=== PATIENT | male | born 1950 | race Caucasian/White ===

== ENCOUNTER 2019-07-09 05:28 | Inpatient (IN) ==
--- NOTE | 2019-06-11 16:39 | PAT Medication Instructions ---
Medication Instructions Date of Service June 11, 2019 Home Medications Cbd Oil 25 mg PO HS 06/06/19 [History Confirmed 06/06/19] Hemp Oil 150 mg PO QAM 06/06/19 [History Confirmed 06/06/19] Lupron Depot (4 month) 1 dose IM Q16W 06/06/19 [History Confirmed 06/06/19] atorvastatin 40 mg PO HS 06/06/19 [History Confirmed 06/06/19] bicalutamide 50 mg PO QPM 06/06/19 [History Confirmed 06/06/19] cyanocobalamin (vitamin B-12) 1,000 mcg PO HS 06/06/19 [History Confirmed 06/06/19] docusate sodium 100 mg PO HS 06/06/19 [History Confirmed 06/06/19] meclizine 12.5 mg PO TID PRN 06/06/19 [History Confirmed 06/06/19] naproxen sodium [Aleve] 440 mg PO Q8H PRN 06/06/19 [History Confirmed 06/06/19] Continue as directed Lupron Depot (4 month) 1 dose IM Q16W 06/06/19 [History Confirmed 06/06/19] ASK your surgeon for instructions naproxen sodium [Aleve] 440 mg PO Q8H PRN 06/06/19 [History Confirmed 06/06/19] ASK your prescriber and surgeon bicalutamide 50 mg PO QPM 06/06/19 [History Confirmed 06/06/19] DO NOT take the morning of surgery Hemp Oil 150 mg PO QAM 06/06/19 [History Confirmed 06/06/19] Take morning of surgery With a small sip of water, OTHERWISE NOTHING TO EAT OR DRINK AFTER MIDNIGHT: meclizine 12.5 mg PO TID PRN (if needed) Take evening before surgery Cbd Oil 25 mg PO HS 06/06/19 [History Confirmed 06/06/19] atorvastatin 40 mg PO HS 06/06/19 [History Confirmed 06/06/19] cyanocobalamin (vitamin B-12) 1,000 mcg PO HS 06/06/19 [History Confirmed 06/06/19] docusate sodium 100 mg PO HS 06/06/19 [History Confirmed 06/06/19] meclizine 12.5 mg PO TID PRN (if needed) Other Notes If you have any questions please call us at [phone] or [phone] or [phone] or [phone]
--- NOTE | 2019-06-12 11:53 | Anesthesiology Consultation ---
Date of Service June 12, 2019 Assessment & Plan (1) Encounter for pre-operative examination: - Awaiting review of preop testing (labs, EKG, CXR). - *Claustrophobic* - Patient anxious RE: SAB (given hx of radiation to the area due to possible metastatic disease)- discussed SAB vs. GA. Chart Review Chart Review: Patient seen in Pre Admission Testing Teaching & Discussion Pre-Anesthesia Teaching/Discussion Notes: Instructed NPO after midnight before surgery,except medications with 15 cc of water. Medication instructions provided according to the PAT guidelines. History Surgery Operation Date: 07/09/19 12:00 Proposed Procedures p Right Total Knee Arthroplasty - Ronal Reagan MD Height/Weight Height: 6 ft Weight: 117.1 kg Allergies Allergy/AdvReac Type Severity Reaction Status Date / Time Rzugnse-Daq-Kzp Reductase Allergy Unknown ONE Verified 06/06/19 16:08 Inhibitor STATIN-RASH Medications Home Medications Medication Instructions Recorded Confirmed Last Taken Cbd Oil 25 mg PO HS 06/06/19 06/06/19 Unknown Hemp Oil 150 mg PO QAM 06/06/19 06/06/19 Unknown Lupron Depot (4 month) 1 dose IM Q16W 06/06/19 06/06/19 Unknown atorvastatin 40 mg PO HS 06/06/19 06/06/19 Unknown bicalutamide 50 mg PO QPM 06/06/19 06/06/19 Unknown cyanocobalamin (vitamin B-12) 1,000 mcg PO HS 06/06/19 06/06/19 Unknown docusate sodium 100 mg PO HS 06/06/19 06/06/19 Unknown meclizine 12.5 mg PO TID PRN 06/06/19 06/06/19 Unknown naproxen sodium [Aleve] 440 mg PO Q8H PRN 06/06/19 06/06/19 Unknown Past Medical History Medical History Arthritis Cancer prostate s/p prostatectomy, XRT (?metastatic disease) History of claustrophobia Hyperlipidemia Obesity Pulmonary embolism S/P left TKA (2012) Sleep apnea CPAP Vertigo Exercise / Class Metabolic Activity III < 4 Walking/Shop/Light housework Past Surgical History Surgical History H/O prostatectomy 2002 History of cholecystectomy History of colonoscopy History of esophagogastroduodenoscopy (EGD) History of surgery on arm RIGHT-S/P INJURY TO REPAIR-DEFORMITY FINGERS BUT ROM OF ARM History of total knee replacement LEFT Past Anesthesia History No Hx of Anesthesia Complications and No Family Hx of Anesthesia Complications History of PONV No Hx of PONV and No Hx of Motion Sickness Social History Smoking Status: Former smoker Do You Dip or Chew Tobacco: No (QUIT 5 YRS AGO) Smoking End Date: QUIT 2016 Hx Alcohol Use: Yes Alcohol type: hard liquor alcohol intake frequency: holidays/special occasions only Hx Substance Use: No Review of Systems Patient denies chest pain, shortness of breath, cough, wheezing, palpitations. Physical Exam Vital Signs VITALS BP 124/70 P 70 TEMP 97.6 SP02 98%RA RESP 18 PHYSICAL Full neck and c-spine range of motion. Full TMJ range of motion. TMD 3 finger breaths Mallampati Score 3 Dentition: full dentures upper/lower Lungs: clear throughout to auscultation Cardiac: regular rate and rhythm, no murmurs noted Spine: normal Carotid arteries: negative bruit Extremities: no edema Testing Stress Test Date: 03/14/18 Type: nuclear Lexiscan nuclear cardiac stress negative for ischemia. LVEF 64%. Gated SPECT images reveals normal myocardial thickening and wall motion. 72% MPHR.
--- NOTE | 2019-06-12 13:02 | XRay Report ---
XR chest Pre-admission PA/Lat CLINICAL HISTORY: 69 years-old Male presenting with preoperative assessment. TECHNIQUE: PA and lateral views of the chest were obtained. COMPARISON: None. FINDINGS: Atherosclerosis of the aortic arch. Cardiac silhouette top normal in size. Lungs and pleural spaces c lear. Osseous structures normal. Cholecystectomy clips noted. IMPRESSION: 1. No acute cardiopulmonary disease. ACT 112: Negative or not required by law. Electronically signed by: Adair Gamboa M.D. 06/12/2019 1:01 PM
[2019-06-12 13:55] LABS: Basophils # (auto) 0.04 K/uL (0-0.2); Basophils % (auto) 0.5 %; Eosinophils # (auto) 0.19 K/uL (0-0.5); Eosinophils % (auto) 2.2 %; Hematocrit (blood only) 42.8 % (42-52); Immature Granulocytes # (auto) 0.05 K/uL (0.00-0.02); Immature Granulocytes % (auto) 0.6 %; Lymphocytes # (auto) 1.59 K/uL (1.2-3.4); Lymphocytes % (auto) 18.6 %; Mean Corpuscular Hemoglobin 33.5 pg (25-34); Mean Corpuscular Volume 95.5 fL (80-100); Mean Platelet Volume 9.8 fL (7.4-10.4); Monocytes # (auto) 0.61 K/uL (0.11-0.59); Monocytes % (auto) 7.2 %; Neutrophils # (auto) 6.05 K/uL (1.4-6.5); Neutrophils % (auto) 70.9 %; Platelet Count 144 K/uL (130-400); RDW Coefficient of Variation 14.9 % (11.5-14.5); RDW Standard Deviation 51.4 fL (36.4-46.3); Red Blood Count 4.48 M/uL (4.7-6.1); White Blood Count 8.53 K/uL (4.8-10.8)
[2019-06-12 13:57] LABS: Estimated Average Glucose 163 mg/dl; Hemoglobin A1C 7.3 % (4.5-5.6)
[2019-06-12 14:02] LABS: Appearance Urine Clear (Clear); Bilirubin Urine Negative (Negative); Blood Urine Negative (Negative); Color Urine Dark Yellow; Glucose Urine UA 2+ (Negative); Ketones Urine Trace (Negative); Leukocyte Esterase Urine Negative (Negative); Nitrite Urine Negative (Negative); Protein Urine Negative (Negative); Specific Gravity Urine 1.031 (1.000-1.030); Urobilinogen Urine Negative (Negative)
[2019-06-12 14:07] LABS: Albumin Level 4.3 gm/dl (3.4-5.0); BUN Creatinine Ratio 16.6 (10-20); Calcium 10.2 mg/dl (8.5-10.1); Est GFR (African American) 69.4; Est GFR (Non-African American) 59.9; Potassium 4.2 mmol/L (3.5-5.1)
[2019-06-12 14:22] LABS: Partial Thromboplastin Ratio 0.8; Partial Thromboplastin Time 22.3 Seconds (21.0-31.0); Prothrombin Time 10.6 Seconds (9.0-12.0)
--- NOTE | 2019-06-12 23:03 | Electrocardiogram Report ---
Test Reason : Blood Pressure : / mmHG Vent. Rate : 072 BPM Atrial Rate : 072 BPM P-R Int : 190 ms QRS Dur : 090 ms QT Int : 386 ms P-R-T Axes : 037 042 041 degrees QTc Int : 422 ms Normal sinus rhythm Nonspecific T wave abnormality No previous ECGs available Confirmed by Efraín Garcia ([id number]) on 06/12/2019 11:03:34 PM Referred By: Ronal Reagan Confirmed By:Efraín Garcia
--- NOTE | 2019-07-08 19:24 | History and Physical Report ---
DATE OF ADMISSION: 07/09/2019 CHIEF COMPLAINT: Chronic right knee pain. HISTORY OF PRESENT ILLNESS: This is a 69-year-old male patient of Dr. Reagan'jovanny complaining of chronic right knee pain, longstanding, now progressively getting worse. The patient has failed conservative treatment including viscosupplementation, intraarticular injections, lidocaine patch, anti-inflammatories, Tylenol, home exercise program and the use of a brace. The patient has pain with weightbearing activities and his pain does interfere with his activities of daily living. The patient has been diagnosed with end-stage osteoarthritis per clinical and radiographic exams in his right knee and wishes to proceed with a right total knee arthroplasty. PAST MEDICAL HISTORY: Hypercholesterolemia, pulmonary embolism, sleep apnea with the use of CPAP, peripheral neuropathy, vertigo, osteoarthritis, spine problems, sciatica, acid reflux, obesity, prostate cancer, cirrhosis. SOCIAL HISTORY: Nonsmoker, nondrinker. SURGICAL HISTORY: Will be provided on admission. FAMILY HISTORY: Noncontributory. REVIEW OF SYSTEMS: Chronic right knee pain, otherwise denies any shortness of breath, chest pain, nausea, vomiting or any other joint complaints. MEDICATIONS: 1. Hemp 150 mg in the morning. 2. Atorvistatin 80 mg 1/2 tablet daily. 3. Bicalutamide 50 mg 1 tablet daily. 4. Docusate sodium 100 mg daily. 5. Vitamin B12 1000 mcg daily. 6. CBD 25 mg daily. 7. Meclizine 12.5 mg 3 times daily as needed. ALLERGIES: STATIN WHICH CAUSED A RASH. PHYSICAL EXAMINATION: GENERAL: Well-developed, well-nourished 69-year-old male in no acute distress. He is alert and oriented x3 and pleasant. HEENT: Normocephalic, atraumatic. Extraocular motions are intact. Pupils are equal and reactive to light. HEART: Regular rate and rhythm, no murmurs. LUNGS: Clear. ABDOMEN: Soft, nontender, bowel sounds present. EXTREMITIES: Right knee reveals a mild effusion with a limited range of motion of 0-115. Neutral alignment. Crepitation with passive range of motion, 5/5 strength. NEUROLOGIC: Neurovascularly he is intact in his right lower extremity. DIAGNOSES: Right knee end-stage osteoarthritis, hypercholesterolemia, history of pulmonary embolism, sleep apnea with the use of CPAP, peripheral neuropathy, vertigo, osteoarthritis, spine problems, sciatica, acid reflux, obesity, prostate cancer, cirrhosis. PLAN: The patient was advised of his diagnosis. Indications, risks, benefits, postop course have all been reviewed. The patient wished to proceed with a right total knee arthroplasty. Necessary consent forms, preoperative testing and clearances will be obtained. PADDY
[2019-07-09] MEDS ORDERED: CeleBREX 200 MG CAP PO SCH (06:00)
[2019-07-09] MEDS ORDERED: FAMOTIDINE 20 MG TAB PO SCH (06:00)
[2019-07-09] MEDS ORDERED: METOCLOPRAMIDE HCL 10 MG TABLET PO SCH (06:00)
[2019-07-09] MEDS ORDERED: GABAPENTIN 300 MG CAP PO SCH (06:00)
[2019-07-09] MEDS ORDERED: LR 500ML BOLUS, THEN 15ML/HR IV SCH (06:00)
[2019-07-09] MEDS ORDERED: dexAMETHasone 4 MG TAB PO SCH (06:00)
[2019-07-09] MEDS ORDERED: CEFAZOLIN 2000MG 2,000 MG/15 ML SYR IV SCH (06:00)
[2019-07-09] MEDS ORDERED: ROPIVACAINE 0.5% HCL/PF 150 MG, BUPIVACAINE 0.5% MPF 30 ML, EPINEPHrine 30MG/30ML (OR U... INFIL SCH (06:00)
[2019-07-09] MEDS ORDERED: ACETAMINOPHEN 500 MG TAB PO SCH (06:00)
[2019-07-09] MEDS ORDERED: ROPIVACAINE 0.5% 5 MG/ML 30 ML VIAL ONE (06:22)
[2019-07-09] MEDS ORDERED: BUPIVACAINE 0.5 % 5 MG/1 ML PF 10ML VIAL ONE (06:22)
[2019-07-09] MEDS ORDERED: ORTHO JOINT ANESTHETIC ONE (06:35)
[2019-07-09] MEDS ORDERED: BACITRACIN INJ 50,000 UNIT VIAL ONE (06:35)
[2019-07-09] MEDS ORDERED: fentaNYL citrate 100 MCG/2 ML VIAL ONE ×2 (06:39→07:50)
[2019-07-09] MEDS ORDERED: MIDAZOLAM HCL 1 MG/ML 2ML VIAL ONE ×2 (06:39)
[2019-07-09] MEDS ORDERED: ONDANSETRON INJ 2 MG/ML 2 ML VIAL IV PRN ×2 (07:00→10:18)
[2019-07-09] MEDS ORDERED: ePHEDrine sulfate 50 MG/ML AMP IV PRN (07:00)
[2019-07-09] MEDS ORDERED: METOCLOPRAMIDE HCL INJ 5 MG/ML 2 ML VIAL IV PRN (07:00)
[2019-07-09] MEDS ORDERED: fentaNYL citrate 100 MCG/2 ML VIAL IV PRN (07:00)
[2019-07-09] MEDS ORDERED: PROMETHAZINE HCL 12.5 MG in SODIUM CHLORIDE 0.9% 50 ML IV PRN (07:00)
[2019-07-09] MEDS ORDERED: ATROPINE SULFATE 0.1 MG/ML 10ML SYR IV PRN (07:00)
--- NOTE | 2019-07-09 07:03 | History & Physical Bridge Note ---
Date of Service July 09, 2019 History & Physical Bridge Note I have examined the patient, reviewed the History & Physical and in the interval since the performance of the History & Physical I have noted the following changes of clinical significance: no changes noted
[2019-07-09] MEDS ORDERED: PROPOFOL IV EMULSION 10 MG/ML 20 ML VIAL IV ONE ×2 (07:51)
[2019-07-09] MEDS ORDERED: LIDOCAINE HCL 2% 2 ML VIAL/AMP(20MG/ML) INFIL ONE (07:51)
[2019-07-09] MEDS ORDERED: ROCURONIUM BROMIDE 10 MG/ML 5 ML VIAL ONE (07:52)
[2019-07-09] MEDS ORDERED: GLYCOPYRROLATE 0.2 MG/ML VIAL ONE (08:54)
[2019-07-09] MEDS ORDERED: NEOSTIGMINE METHYLSULFATE 5 MG/5 ML SYR ONE (08:54)
--- NOTE | 2019-07-09 09:01 | Post Operative Brief Note ---
Immediate Post Op Note v1 Date of Surgery July 09, 2019 Pre & Post Diagnosis Operation Date: 07/09/19 07:00 Pre-Op Diagnosis: Right Knee Degenerative Joint Disease Post-Op Diagnosis: Right Knee Degenerative Joint Disease I identified the patient and participated in the time-out.: Yes Procedure Operation Date: 07/09/19 07:00 Actual Procedures p Right Total Knee Arthroplasty(Right) - Ronal Reagan MD Surgeon Ronal Reagan MD Director [employer] GLYNN [place] Estimated Blood Loss 5 Findings Consistent with Post-Op Diagnosis Valgus knee lateral compartment OA grade 4 trochlear OA grade 4 lateral compartment OA chronic ACL tear medial meniscus tear lateral meniscus tear synovial calcification possible steroid deposition Specimens Bone cuts Drains Hemovac Drain Anesthesia Type MAC Spinal Regional Complications none Disposition Accompanied Patient To Recovery: No Disposition: Recovery Room Overlapping Procedure I was present for: the critical portions of procedure. Back up surgeon: was not required during procedure.
--- NOTE | 2019-07-09 09:42 | XRay Report ---
XR knee RT 1 or 2V routine CLINICAL HISTORY: Postoperative examination COMPARISON: None. DISCUSSION: There are postsurgical changes of a total right knee arthroplasty and patellar resurfacin g. The femoral tibial components appear well seated. Overlying skin abimael and surgical drains are e vident. There is air within the soft tissues consistent with recent surgery. IMPRESSION: Postsurgical changes of a total right knee arthroplasty. ACT 112: Negative or not required by law. Electronically signed by: Akbar Sena M.D. 07/09/2019 9:41 AM
[2019-07-09] MEDS ORDERED: HYDROmorphone INJ 0.5 MG/0.5 ML SYR IV PRN (10:18)
[2019-07-09] MEDS ORDERED: bisacodyL 10 MG SUPP PR PRN (10:18)
[2019-07-09] MEDS ORDERED: NALOXONE HCL 0.4 MG/1 ML VIAL/CARP IV PRN (10:18)
[2019-07-09] MEDS ORDERED: LUPRON DEPOT IM SCH (10:18)
[2019-07-09] MEDS ORDERED: MAGNESIUM HYDROXIDE SUSP 30 ML UDC PO PRN (10:18)
[2019-07-09] MEDS ORDERED: MECLIZINE 12.5 MG TAB PO PRN (10:18)
--- NOTE | 2019-07-09 10:52 | Consultation ---
Date of Consultation July 09, 2019 Assessment & Plan (1) Status post total right knee replacement: 69yo C male status post right total knee arthroplasty performed today by Dr. Reagan. Surgery well tolerated, no complications identified. Patient with history of post-operative PE after a knee replacement in 2012. He completed anticoagulation at that time. -Continue pain, nausea and bowel management per primary team -Activity per primary team. Encourage ambulation as tolerated -Patient to be evaluated by Case Management for possible rehab placement -Rivaroxaban for prophylaxis Present on Admission?: Yes (2) Cancer: Patient with metastatic prostate cancer presently on monthly Lupron and Casodex -Continue Casodex 50mg po daily -Lupron to be administered outpatient as scheduled Present on Admission?: Yes (3) Hyperlipidemia: Chronic. Stable -Continue Atorvastatin at home dose Present on Admission?: Yes (4) Sleep apnea: Chronic -CPAP qHS Thank you for this consult. Hospitalist team will sign off. Please do not hesitate to contact us with additional questions or concerns. History of Present Illness Reason for Consultation: Post-operative medical management Attending Physician: Ronal Reagan MD History of Present Illness Mr. Hemanth Durham is a pleasant 69yo C male with history of metastatic prostate CA, HLP, GERD s/p right TKA [id number] by Dr. Reagan today. Surgery was well tolerated, minimal blood loss. No immediate complications identified. Patient presently with no complaints. Pain is well controlled. No nausea/vomiting. He has not yet eaten or passed gas. No ambulation yet. No complaints at this time. Allergies Allergy/AdvReac Type Severity Reaction Status Date / Time Ofsddvg-Giw-Uuq Reductase Allergy Unknown ONE Verified 07/09/19 05:51 Inhibitor STATIN-RASH Home Medications Home Medications Medication Instructions Recorded Confirmed Type Cbd Oil 25 mg PO HS 06/06/19 07/09/19 History Hemp Oil 150 mg PO QAM 06/06/19 07/09/19 History Lupron Depot (4 month) 1 dose IM Q16W 06/06/19 07/09/19 History atorvastatin 40 mg PO HS 06/06/19 07/09/19 History bicalutamide 50 mg PO QPM 06/06/19 07/09/19 History cyanocobalamin (vitamin B-12) 1,000 mcg PO HS 06/06/19 07/09/19 History docusate sodium 100 mg PO HS 06/06/19 07/09/19 History meclizine 12.5 mg PO TID PRN 06/06/19 07/09/19 History naproxen sodium [Aleve] 440 mg PO Q8H PRN 06/06/19 07/09/19 History Patient History Medical History Arthritis Cancer prostate s/p prostatectomy, XRT (?metastatic disease) History of claustrophobia Hyperlipidemia Obesity Pulmonary embolism S/P left TKA (2012) Sleep apnea CPAP Vertigo Surgical History H/O prostatectomy 2001 History of cholecystectomy History of colonoscopy History of esophagogastroduodenoscopy (EGD) History of surgery on arm RIGHT-S/P INJURY TO REPAIR-DEFORMITY FINGERS BUT ROM OF ARM History of total knee replacement LEFT Family History (Updated 07/09/19 @ 11:24 by Nichelle Mcdonlad DO) Other Cancer Coronary heart disease Social History Preferred Language: Armenian Communication Ability: Effective 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 Beliefs That Will Affect Care: None Current Living Situation: Spouse Other Information That Helps Us Care for You: No Feels Safe at Home: Yes Safety Concerns: Feels Safe At This Time Smoking Status: Former smoker Do You Dip or Chew Tobacco: No (QUIT 5 YRS AGO) ; Smoking End Date: QUIT 2016 ; Second Hand Exposure: Yes (IN THE PAST) ; Hx Alcohol Use: Yes Alcohol type: hard liquor Hx Substance Use: No Review of Systems Review of Systems: General: Patient denies fevers, chills, malaise, weight loss or weight gain Skin: Patient denies bruising, bleeding or rash HEENT: Patient denies headache, visual changes, sore throat, difficulty swallowing, stiff neck Cardio: Patient denies chest pain, palpitations, shortness of breath, lightheadedness Pulmonary: Patient denies cough, wheeze GI: Patient denies abdominal pain, nausea, vomiting, diarrhea, constipation : Patient denies dysuria, frequency, urgency or hematuria Musculoskeletal: Patient denies swelling or pain of the joints, edema Neuro: Patient denies numbness, tingling, weakness or falls Psych: Patient denies depression, anxiety Physical Exam Physical Exam: General: patient resting comfortably, NAD, non-toxic in appearance, AA&O x 4 Skin: warm, dry, no rashes or lesions, RLE bandages in place, C/D/I HEENT: NC/AT, PERRL, EOMI, anicteric sclera, conjunctiva without injection, external ear normal to inspection and nontender, nares patent, moist mucus membranes, dentition intact, no oropharyngeal lesions, neck supple, trachea midline, no LAD, no thyromegaly, no JVD Heart: +S1/S2, regular, no m/r/g Lungs: equal air entry bilaterally, no rales/rhonchi/wheezes Abd: +BS, soft, NT/ND, no masses/organomegaly/ascites Ext: warm, 2+ pulses in UE/LE bilaterally, no clubbing/cyanosis or edema, RLE neurovascularly intact Neuro: nonfocal, patient AA&O x 4, speech intact, no facial droop, moving all extremities on command with equal strength 5/5 Results & Data ([facility]) Vital Signs (Past 12 Hours) Vital Signs Temp Pulse Pulse Resp BP Pulse Ox 07/09/19 10:05 37.1 C 63 14 119/73 96 07/09/19 09:55 36.7 C 62 18 115/63 96 07/09/19 09:45 61 19 118/62 95 07/09/19 09:35 58 L 19 122/62 97 07/09/19 09:25 58 L 20 117/65 95 07/09/19 09:18 36.6 C 61 14 137/67 95 07/09/19 05:55 37.0 C 68 18 134/92 94 Laboratory Results Lab Results 06/12/19 06/12/19 06/12/19 Range/Units 12:15 12:15 12:15 WBC 8.53 (4.8-10.8) K/uL RBC 4.48 L (4.7-6.1) M/uL Hgb 15.0 (14.0-18.0) g/dL Hct 42.8 (42-52) % MCV 95.5 (80-100) fL MCH 33.5 (25-34) pg MCHC 35.0 (32-36) g/dL RDW Std Deviation 51.4 H (36.4-46.3) fL RDW Coeff of Hieu 14.9 H (11.5-14.5) % Plt Count 144 (130-400) K/uL MPV 9.8 (7.4-10.4) fL Immature Gran % (Auto) 0.6 % Neut % (Auto) 70.9 % Lymph % (Auto) 18.6 % [place] % (Auto) 7.2 % Eos % (Auto) 2.2 % Baso % (Auto) 0.5 % Immature Gran # (Auto) 0.05 H (0.00-0.02) K/uL Neut # (Auto) 6.05 (1.4-6.5) K/uL Lymph # (Auto) 1.59 (1.2-3.4) K/uL [place] # (Auto) 0.61 H (0.11-0.59) K/uL Eos # (Auto) 0.19 (0-0.5) K/uL Baso # (Auto) 0.04 (0-0.2) K/uL PT 10.6 (9.0-12.0) Seconds INR 1.0 (0.9-1.1) APTT 22.3 (21.0-31.0) Seconds PTT Ratio 0.8 Sodium 138 (136-145) mmol/L Potassium 4.2 (3.5-5.1) mmol/L Chloride 105 (98-107) mmol/L Carbon Dioxide 28 (21-32) mmol/L Anion Gap 5.0 (3-11) BUN 20 H (7-18) mg/dl Creatinine 1.21 (0.6-1.4) mg/dl Est Cr Clr Drug Dosing 74.0 ml/min Est GFR ( Amer) 69.4 Est GFR (Non-Af Amer) 59.9 BUN/Creatinine Ratio 16.6 (10-20) Glucose 188 H (70-99) mg/dl Estimat Average Glucose mg/dl Hemoglobin A1c (4.5-5.6) % Calcium 10.2 H (8.5-10.1) mg/dl Albumin 4.3 (3.4-5.0) gm/dl Urine Color Urine Appearance (Clear) Urine pH (4.5-7.5) Ur Specific [place] (1.000-1.030) Urine Protein (Negative) Urine Glucose (UA) (Negative) Urine Ketones (Negative) Urine Blood (Negative) Urine Nitrite (Negative) Urine Bilirubin (Negative) Urine Urobilinogen (Negative) Ur Leukocyte Esterase (Negative) Blood Type Antibody Screen 06/12/19 06/12/19 06/12/19 Range/Units 12:15 12:15 Unknown WBC (4.8-10.8) K/uL RBC (4.7-6.1) M/uL Hgb (14.0-18.0) g/dL Hct (42-52) % MCV (80-100) fL MCH (25-34) pg MCHC (32-36) g/dL RDW Std Deviation (36.4-46.3) fL RDW Coeff of Hieu (11.5-14.5) % Plt Count (130-400) K/uL MPV (7.4-10.4) fL Immature Gran % (Auto) % Neut % (Auto) % Lymph % (Auto) % [place] % (Auto) % Eos % (Auto) % Baso % (Auto) % Immature Gran # (Auto) (0.00-0.02) K/uL Neut # (Auto) (1.4-6.5) K/uL Lymph # (Auto) (1.2-3.4) K/uL [place] # (Auto) (0.11-0.59) K/uL Eos # (Auto) (0-0.5) K/uL Baso # (Auto) (0-0.2) K/uL PT (9.0-12.0) Seconds INR (0.9-1.1) APTT (21.0-31.0) Seconds PTT Ratio Sodium (136-145) mmol/L Potassium (3.5-5.1) mmol/L Chloride (98-107) mmol/L Carbon Dioxide (21-32) mmol/L Anion Gap (3-11) BUN (7-18) mg/dl Creatinine (0.6-1.4) mg/dl Est Cr Clr Drug Dosing ml/min Est GFR ( Amer) Est GFR (Non-Af Amer) BUN/Creatinine Ratio (10-20) Glucose (70-99) mg/dl Estimat Average Glucose 163 mg/dl Hemoglobin A1c 7.3 H (4.5-5.6) % Calcium (8.5-10.1) mg/dl Albumin (3.4-5.0) gm/dl Urine Color Dark Yellow Urine Appearance Clear (Clear) Urine pH 5.0 (4.5-7.5) Ur Specific [place] 1.031 H (1.000-1.030) Urine Protein Negative (Negative) Urine Glucose (UA) 2+ H (Negative) Urine Ketones Trace H (Negative) Urine Blood Negative (Negative) Urine Nitrite Negative (Negative) Urine Bilirubin Negative (Negative) Urine Urobilinogen Negative (Negative) Ur Leukocyte Esterase Negative (Negative) Blood Type A Positive Antibody Screen NEGATIVE Diagnostic Findings XR knee RT 1 or 2V routine CLINICAL HISTORY: Postoperative examination COMPARISON: None. DISCUSSION: There are postsurgical changes of a total right knee arthroplasty and patellar resurfacing. The femoral tibial components appear well seated. Overlying skin abimael and surgical drains are evident. There is air within the soft tissues consistent with recent surgery. IMPRESSION: Postsurgical changes of a total right knee arthroplasty. ACT 112: Negative or not required by law. Electronically signed by: Akbar Sena M.D. 07/09/2019 9:41 AM Dictated: 07/09/[id number] Transcribed: 07/09/19939 ECG Additional Comments: EKG from 12 June 2019 - NSR at 72 bpm, normal axis, OX=482, QRS=90, ILr=794, no acute ischemic changes PG Care Time/CCT Total # of Minutes Spent Total Time Spent with Patient: Total time spent is greater than 50% in coordination of care (as documented) at patient's floor/unit and/or counseling patient: Coding Level of Care Code 41210 Initial Inpt Care Lvl 3 Diagnoses Status post total right knee replacement Z96.651 Cancer C80.1 Hyperlipidemia E78.5 Hyperlipidemia type: unspecified Sleep apnea G47.30 Sleep apnea type: unspecified type (1) Sleep apnea Sleep apnea type: unspecified type Qualified Code(s): G47.30 - Sleep apnea, unspecified (2) Hyperlipidemia Hyperlipidemia type: unspecified Qualified Code(s): E78.5 - Hyperlipidemia, unspecified
[2019-07-09] MEDS: SODIUM CHLORIDE 0.9% 1000ML 1,000 ML IV SCH ×2 (10:53→20:49)
--- NOTE | 2019-07-09 10:57 | Anesthesiology Progress Note ---
Date of Service July 09, 2019 Anesthesia Post Procedure Vital Signs Vital Signs: Temp Pulse Pulse Resp BP Pulse Ox 07/09/19 10:35 36.5 C 66 15 104/68 95 07/09/19 10:05 37.1 C 63 14 119/73 96 07/09/19 09:55 36.7 C 62 18 115/63 96 07/09/19 09:45 61 19 118/62 95 07/09/19 09:35 58 L 19 122/62 97 07/09/19 09:25 58 L 20 117/65 95 07/09/19 09:18 36.6 C 61 14 137/67 95 07/09/19 05:55 37.0 C 68 18 134/92 94 Pain Intensity Right Knee: Pain Intensity: 3 Transfer of Care Handoff Completed per policy Notes Mental Status: alert / awake / arousable and participated in evaluation Patient Amnestic to Procedure: Yes Nausea / Vomiting: adequately controlled Pain: adequately controlled Airway Patency, RR, SpO2: stable & adequate BP & HR: stable & adequate Hydration State: stable & adequate Anesthetic Complications: no major complications apparent
--- NOTE | 2019-07-09 12:20 | Operative Report ---
Post Operative Report Pre & Post Diagnosis Operation Date: 07/09/19 07:00 Pre-Op Diagnosis: Right Knee Degenerative Joint Disease Post-Op Diagnosis: Right Knee Degenerative Joint Disease I identified the patient and participated in the time-out.: Yes Procedure Operation Date: 07/09/19 07:00 Actual Procedures p Right Total Knee Arthroplasty(Right) - Ronal Reagan MD Surgeon Ronal Reagan MD Career Development Director GLYNN Salamanca Estimated Blood Loss 5 Findings Consistent with Post-Op Diagnosis Specimens Bone cuts Drains 2 Hemovac Anesthesia Type General Regional Complications none Disposition Disposition: Recovery Room Indications 69-year-old male with chronic progressive osteoarthritis in his right knee. Patient is a valgus knee [id number] lateral compartment with some moderate patellofemoral OA. Patient is failed conservative management. Patient has successful left knee replacement the past. Description of Procedure The patient was taken to the operating room and anesthetized under general anesthesia he also had regional block anesthesia right lower extremity.. Patient was placed supine on the the operating table. A pneumatic tourniquet was placed about the right upper thigh. The knee exam demonstrated valgus knee good range of motion positive Janee exam. The involved leg was elevated exsanguinated with Esmarch bandage and the pneumatic tourniquet was raised to 325 millimeters mercury. A longitudinal incision was made across the anterior knee. Skin flaps were elevated. An incision was made into the medial retinaculum and extended up into the mid third of the quadriceps tendon and extended down to the tibial tubercle. Intra-articular findings demonstrated chronic ACL tear grade 4 trochlear DJD grade 4 lateral compartment DJD [id number] chronic medial meniscus tear chronic lateral meniscus tear calcified synovium possibly related to steroid deposition chronic synovitis. The knee was exposed by excising the posterior cruciate ligament and menisci. The infrapatellar fat pad was resected. The fat pad over the anterior femur at the upper aspect of the articular surface was resected for placement of the component in that area. A subperiosteal peel lateral release was performed around the patella The [employer] journey 2.0 posterior stabilized total knee arthroplasty system was utilized for the procedure. The custom femoral cutting guide was pinned in position. The distal femoral cut was made. The size 8, 5 in 1 cutting block was placed. The anterior posterior and chamfer cuts were made. The knee was extended and a free hand cut technique was performed to the patella. The patella with was measured and the width was reproduced using a 41 patella component. 3 drill holes are made for the patella component pegs. The tibia was then subluxed. The custom tibial cutting block was pinned in position and the proximal tibial cut was made with the oscillating saw. The size 7 tibial trial was externally rotated in line with the tibial tubercle and pinned in position. The punch for the stem was used. The femoral trial was inserted and centered the notch cutting devices were used and the collet was placed. Tibial trials were used for the insert. The size 11 trial gave balanced ligaments through full range of motion. Patella tracking was assessed with range of motion. The patella tracked with some slight liftoff so I did a lateral release leaving the synovium intact and the patella tracked centrally. The trials were removed. The Orthomix anesthetic cocktail was injected per protocol. The cut bone surfaces and soft tissue were copiously irrigated with antibiotic solution with bacitracin. The final components were cemented with Simplex cement. The final components were [employer] journey 2.0 right posterior stabilized size 8 femoral component, 7 tibial component, 11 mm posterior stabilized polyethylene insert for the tibia, 41 symmetrical patella.. While the cement cured the Betadine soak was used per protocol. When the cement cured the knee was copiously irrigated with pulsatile lavage antibiotic solution with bacitracin. 2 drains were brought out laterally connected to Hemovac. The quadriceps tendon and medial retinaculum were closed with interrupted [id number] #1 Vicryl sutures. The knee was taken through full range of motion and repair was secure. The subcutaneous tissues were closed with 2-0 Vicryl sutures. The skin was closed with abimael. A sterile dressing was applied. The tourniquet was let down and the patient had good capillary refill to the extremity. The patient tolerated the procedure well. My physician acute care assistant GLYNN Salamanca assisted in the procedure including prepping draping leg positioning soft tissue retraction instrument management and assisted in the closure ,dressings application and will participate in postoperative care the patient. I attest to the content of the Intraoperative Record and any orders documented therein. Any exceptions are noted below.
[2019-07-09] MEDS: OXYCODONE HCL IR 5 MG TAB (IMMEDIATE RELEASE) PO PRN ×2 (12:27→15:36)
[2019-07-09] MEDS ORDERED: ACETAMINOPHEN 1000 MG/100 ML IV IV ONE (14:02)
[2019-07-09] MEDS ORDERED: GLUCAGON 1 MG in SYRINGE 0 ML IV STA (14:03)
[2019-07-09] MEDS: ACETAMINOPHEN 500 MG TAB PO SCH ×2 (14:10→21:00)
[2019-07-09] MEDS: CEFAZOLIN 2000MG 2,000 MG/15 ML SYR IV SCH ×2 (14:25→23:10)
[2019-07-09] MEDS ORDERED: GLUCAGON 1 MG in SYRINGE 0 ML IV ONE (14:30)
--- NOTE | 2019-07-09 15:11 | Gastrointestinal Consultation ---
Date of Consultation July 09, 2019 Assessment & Plan (1) Dysphagia: Pt is a 69 y/o male with PMHx metastatic prostate CA; GI was consulted this afternoon for concern of food bolus after pt felt his food (steak tips and noodles) along with a pain pill get "stuck" in the throat area after swallowing. Pt did have a small amt of emesis followed by the sensation that the food "went down" and was no longer stuck in his throat. He was able to swallow some pudding afterward and did not have further emesis. Currently he is without complaints; hemodynamically stable; in no distress or discomfort. It seems that he may have had a food bolus that relieved itself. Contributing factors ar e likely his lack of bottom teeth, recent sedation this AM, laying in bed, and given his frequent belching and intermittent dysphagia to liquids, may have underlying UGI issues such as esophageal stenosis/dysmotility, PUD/gastritis/esophagitis, etc. Initially we ordered glucagon, however as his symptoms were resolved, we cancelled this order. He notes that he has ongoing issues swallowing very cold liquids and also has frequent belching. - Will plan for EGD tomorrow to evaluate for underlying esophageal stenosis/ring/Web/diverticulum, etc, vs PUD/gastritis/esophagitis - Would be reasonable to start low-dose PPI daily for his symptoms of belching and dysphagia (e.g. omeprazole 20 mg daily) - Recommend pt be on a clear liquid diet today. - NPO after midnight - Further recommendations to follow EGD tomorrow Supervising Physician Co-Signing Physician Notes I saw and evaluated the patient on 07-09-19. We were consulted for a food impaction. This occurred shortly after a surgical procedure with general anesthesia. At the time of our arrival the patient noted that the bolus had passed without any difficulties. He was tolerating a liquid diet and had been given pudding by the nursing staff. The patient notes that he has had some outpatient intermittent solid food dysphagia over the past few years. Prior endoscopy in 2018 was notable for no significant structural abnormalities. Physical examination No obvious distress No crepitus noted of the chest No abdominal tenderness Impression: Patient with intermittent solid food dysphasia status post food bolus impaction which resolved spontaneously. We are certainly happy to provide endoscopic evaluation during this patient's admission. Recommendations Liquid diet today Upper endoscopy planned for tomorrow Please call with any questions or concerns History of Present Illness Reason for Consultation: food bolus Attending Physician: Ronal Reagan MD History of Present Illness Pt is a 69 y/o male with PMhx metastatic prostate CA, HLD who underwent total right knee replacement this AM by Dr. Reagan. After coming up to the floor, the pt was eating steak tips and noodles for lunch when he was attempting to swallow a pain pill and bites of food at the same time. He felt pressure and discomfort in his throat as the food "didn't go down" and was "stuck" around his anterior throat area. He noted he vomited some of it up and the rest "went down." He had relief of the pressure and discomfort. He was able to swallow some pudding thereafter. Currently feels well without complaints. He notes he has no bottom teeth but does have upper dentures. Denies abd pain, nausea, vomiting, hematemesis; has had no BM since admission. Pt notes a few times a year he will have fleeting episodes of discomfort in his anterior chest after swallowing large gulps of very cold Pepsi. He also notes frequent belching. Denies significant heartburn, regurgitation, solid food dysphagia. EGD 12/2017: Normal esophagus. Z-line regular, 39 cm from the incisors. Diffuse gastritis, biopsied = mild inflammation, neg H. pylori. Normal examined duodenum. Biopsied = neg Celiac. EUS 12/2017: Gallbladder sludge Colonoscopy10/2016: Sigmoid diverticulosis; repeat 10 years Allergies Allergy/AdvReac Type Severity Reaction Status Date / Time Bgylaji-Yuw-Wmy Reductase Allergy Unknown ONE Verified 07/09/19 05:51 Inhibitor STATIN-RASH Home Medications Home Medications Medication Instructions Recorded Confirmed Type Cbd Oil 25 mg PO HS 06/06/19 07/09/19 History Hemp Oil 150 mg PO QAM 06/06/19 07/09/19 History Lupron Depot (4 month) 1 dose IM Q16W 06/06/19 07/09/19 History atorvastatin 40 mg PO HS 06/06/19 07/09/19 History bicalutamide 50 mg PO QPM 06/06/19 07/09/19 History cyanocobalamin (vitamin B-12) 1,000 mcg PO HS 06/06/19 07/09/19 History docusate sodium 100 mg PO HS 06/06/19 07/09/19 History meclizine 12.5 mg PO TID PRN 06/06/19 07/09/19 History naproxen sodium [Aleve] 440 mg PO Q8H PRN 06/06/19 07/09/19 History Patient History Medical History Arthritis Cancer prostate s/p prostatectomy, XRT (?metastatic disease) History of claustrophobia Hyperlipidemia Obesity Pulmonary embolism S/P left TKA (2012) Sleep apnea CPAP Vertigo Surgical History H/O prostatectomy 2001 History of cholecystectomy History of colonoscopy History of esophagogastroduodenoscopy (EGD) History of surgery on arm RIGHT-S/P INJURY TO REPAIR-DEFORMITY FINGERS BUT ROM OF ARM History of total knee replacement LEFT Family History (Updated 07/09/19 @ 11:24 by Nichelle Mcdonald DO) Other Cancer Coronary heart disease Social History Preferred Language: Welsh Communication Ability: Effective Monotype Setter Required: No Beliefs That Will Affect Care: None Current Living Situation: Spouse Other Information That Helps Us Care for You: No Feels Safe at Home: Yes Safety Concerns: Feels Safe At This Time Smoking Status: Former smoker Do You Dip or Chew Tobacco: No (QUIT 5 YRS AGO) ; Smoking End Date: QUIT 2016 ; Second Hand Exposure: Yes (IN THE PAST) ; Hx Alcohol Use: Yes Alcohol type: hard liquor Hx Substance Use: No Review of Systems Constitutional: as per Subjective / HPI; no fever and no chills Respiratory: no cough and no dyspnea Cardiovascular: no chest pain and no dyspnea Gastrointestinal: as per Subjective / HPI Integumentary: no rash Physical Exam Constitutional: WD/WN, vitals as above no acute distress Eyes: PERRL, conjunctivae normal, anicteric sclerae Respiratory: normal respiratory effort, lungs clear to auscultation Cardiovascular: RRR, no murmur, no edema Gastrointestinal (Abdomen): Inspection/Auscultation: abdomen normal to inspection and normal bowel sounds; abdomen not distended Percussion/Palpation: abdomen soft and normal to percussion; abdomen nontender and no guarding Skin: no rashes, warm and dry Psychiatric: A+Ox3, euthymic affect somewhat groggy as he just had anesthesia this AM Results & Data ([facility]) Vital Signs (Past 12 Hours) Vital Signs Temp Pulse Pulse Resp BP Pulse Ox 07/09/19 14:58 36.4 C L 67 17 121/74 96 07/09/19 13:13 36.5 C 85 19 130/80 98 07/09/19 12:05 36.4 C L 63 15 109/72 96 07/09/19 11:06 36.5 C 69 14 109/72 96 07/09/19 10:35 36.5 C 66 15 104/68 95 07/09/19 10:05 37.1 C 63 14 119/73 96 07/09/19 09:55 36.7 C 62 18 115/63 96 07/09/19 09:45 61 19 118/62 95 07/09/19 09:35 58 L 19 122/62 97 07/09/19 09:25 58 L 20 117/65 95 07/09/19 09:18 36.6 C 61 14 137/67 95 07/09/19 05:55 37.0 C 68 18 134/92 94
[2019-07-09] MEDS: BICALUTAMIDE 50 MG TAB PO SCH (20:58)
[2019-07-09] MEDS: SENNA 8.6 MG TAB PO SCH (20:58)
[2019-07-09] MEDS: DOCUSATE SODIUM 100 MG CAP PO SCH (20:59)
[2019-07-09] MEDS: CYANOCOBALAMIN 500 MCG TABLET (VITAMIN B-12) PO SCH (20:59)
[2019-07-09] MEDS: CeleBREX 200 MG CAP PO SCH (20:59)
[2019-07-09] MEDS: ATORVASTATIN 40 MG TAB PO SCH (21:00)
[2019-07-09] MEDS ORDERED: DOCUSATE SODIUM 100 MG CAP PO SCH (21:00)
[2019-07-09] MEDS ORDERED: CBD OIL PO SCH (21:00)
[2019-07-10 05:09] LABS: Hematocrit (blood only) 32.8 % (42-52); Hemoglobin 11.7 g/dL (14.0-18.0); Mean Corpuscular Hemoglobin 33.4 pg (25-34); Mean Corpuscular Hgb Conc 35.7 g/dL (32-36); Mean Corpuscular Volume 93.7 fL (80-100); Mean Platelet Volume 9.1 fL (7.4-10.4); Platelet Count 167 K/uL (130-400); RDW Coefficient of Variation 14.9 % (11.5-14.5); RDW Standard Deviation 49.8 fL (36.4-46.3); White Blood Count 14.07 K/uL (4.8-10.8)
[2019-07-10 05:36] LABS: Calcium 8.4 mg/dl (8.5-10.1); Creatinine Clr Calc Pharmacy 70.7 ml/min; Est GFR (African American) 65.4; Est GFR (Non-African American) 56.5; Potassium 4.1 mmol/L (3.5-5.1)
[2019-07-10] MEDS: ACETAMINOPHEN 500 MG TAB PO SCH ×3 (05:43→21:37)
[2019-07-10] MEDS: SODIUM CHLORIDE 0.9% 1000ML 1,000 ML IV SCH ×2 (06:24→17:15)
--- NOTE | 2019-07-10 08:17 | Anesthesiology Progress Note ---
Date of Service July 10, 2019 Anesthesia Post Procedure Vital Signs Vital Signs: Temp Pulse Pulse Pulse Resp BP Pulse Ox 07/10/19 07:12 36.5 C 65 16 126/79 97 07/10/19 02:55 36.8 C 73 16 109/73 98 07/09/19 23:04 36.8 C 71 17 110/72 95 07/09/19 19:58 36.8 C 68 16 99/64 L 94 07/09/19 14:58 36.4 C L 67 17 121/74 96 07/09/19 13:13 36.5 C 85 19 130/80 98 07/09/19 12:05 36.4 C L 63 15 109/72 96 07/09/19 11:06 36.5 C 69 14 109/72 96 07/09/19 10:35 36.5 C 66 15 104/68 95 07/09/19 10:05 37.1 C 63 14 119/73 96 07/09/19 09:55 36.7 C 62 18 115/63 96 07/09/19 09:45 61 19 118/62 95 07/09/19 09:35 58 L 19 122/62 97 07/09/19 09:25 58 L 20 117/65 95 07/09/19 09:18 36.6 C 61 14 137/67 95 Pain Intensity Right Knee: Pain Intensity: 1 Notes Mental Status: alert / awake / arousable and participated in evaluation Nausea / Vomiting: adequately controlled Pain: adequately controlled Airway Patency, RR, SpO2: stable & adequate BP & HR: stable & adequate Hydration State: stable & adequate
[2019-07-10] MEDS ORDERED: CARBOHYDRATES FOR HYPOGLYCEMIA PO PRN (08:20)
[2019-07-10] MEDS ORDERED: GLUCAGON FOR INJ 1 MG VIAL SQ PRN (08:20)
[2019-07-10] MEDS ORDERED: GLUCOSE 40% GEL 15 GM TUBE PO PRN (08:20)
[2019-07-10] MEDS ORDERED: GLUCOSE 10 TABS/TUBE PO PRN (08:20)
[2019-07-10] MEDS ORDERED: DEXTROSE 50% 50 ML SYRINGE IV PRN (08:20)
--- NOTE | 2019-07-10 08:27 | Orthopedic Progress Note ---
Date of Service July 10, 2019 Assessment & Plan (1) Status post total right knee replacement: POD #1 PT/ OT DVT proph- Xarelto, on hold for now due to GI procedure. D/C planning- SNF As per medicine (2) Dysphagia: Patient is NPO per GI for EGD today due to hx of dysphagia. Admission and Anticipated Discharge Date Admission Date: July 09, 2019 Subjective POD #1, Patient doing well this AM. Denies SOB, CP, N/V. Had an episode last evening during dinner where he choked, he was trying to take a pill at the same time with food in his mouth and was felt to have a food bolus. He did get the food and pill swallowed with some emesis. Patient states this has been going on for years and he just manages it, has never really reported it to his doctors. Physical Exam Physical Exam: Laying comfortable in bed. Right knee dressings/ drain c/d/i. Toes/ ankle mobile. A&Ox3. Results & Data ([facility]) Vital Signs (Past 12 Hours) Vital Signs Temp Pulse Resp BP Pulse Ox 07/10/19 07:12 36.5 C 65 16 126/79 97 07/10/19 02:55 36.8 C 73 16 109/73 98 07/09/19 23:04 36.8 C 71 17 110/72 95
[2019-07-10] MEDS ORDERED: FAMOTIDINE 20 MG TAB PO SCH (09:00)
[2019-07-10] MEDS ORDERED: RIVAROXABAN 10 MG TABLET PO SCH ×2 (09:00→21:00)
[2019-07-10] MEDS ORDERED: HEMP OIL PO SCH (09:00)
[2019-07-10] MEDS: DOCUSATE SODIUM 100 MG CAP PO SCH ×2 (09:02→21:38)
[2019-07-10] MEDS: CeleBREX 200 MG CAP PO SCH ×3 (09:02→21:38)
[2019-07-10] MEDS: MULTIVITAMIN TAB PO SCH (09:02)
[2019-07-10] MEDS: INSULIN GLARGINE SOLOSTAR 100 UNITS/ML 3 ML PEN SC SCH ×2 (09:20→21:40)
--- NOTE | 2019-07-10 09:23 | Gastroenterology Progress Note ---
Date of Service July 10, 2019 Assessment & Plan (1) Dysphagia: Pt is a 69 y/o male with intermittent episodes of liquid/solid dysphagia, reported food bolus which passed yesterday without intervention, to undergo endosocopic evaluation today - NPO for EGD - Omeprazole 20 mg daily Admission and Anticipated Discharge Date Admission Date: July 09, 2019 Supervising Physician Co-Signing Physician Notes I saw and evaluated the patient. We are planning for upper endoscopy today due to intermittent solid food dysphagia. We have discussed the risks of the procedure to include bleeding, infection, perforation and need for follow-up exams. Subjective Pt was seen and evaluated, chart reviewed No acute concerns overnight No fever, chills, CP, SOB NPO for EGD Review of Systems Constitutional: as per Subjective / HPI; no fever and no chills Gastrointestinal: as per Subjective / HPI Physical Exam Constitutional: WD/WN, vitals as above Neck: trachea midline Respiratory: normal respiratory effort Cardiovascular: Rate/Rhythm: regular rate and regular rhythm Gastrointestinal (Abdomen): normal bowel sounds, soft, nontender, no hepatosplenomegaly Results & Data ([facility]) Vital Signs (Past 12 Hours) Vital Signs Temp Pulse Resp BP Pulse Ox 07/10/19 07:12 36.5 C 65 16 126/79 97 07/10/19 02:55 36.8 C 73 16 109/73 98 07/09/19 23:04 36.8 C 71 17 110/72 95
[2019-07-10] MEDS ORDERED: Nursing to Pharmacy Communication ONE ×2 (09:41→15:19)
[2019-07-10] MEDS ORDERED: LIDOCAINE HCL 2% 2 ML VIAL/AMP(20MG/ML) INFIL ONE (10:47)
[2019-07-10] MEDS ORDERED: PROPOFOL IV EMULSION 10 MG/ML 20 ML VIAL IV ONE (10:47)
[2019-07-10] MEDS ORDERED: fentaNYL citrate 100 MCG/2 ML VIAL ONE (10:47)
[2019-07-10] MEDS ORDERED: ePHEDrine sulfate 50 MG/ML AMP IV PRN (10:50)
[2019-07-10] MEDS ORDERED: ATROPINE SULFATE 0.1 MG/ML 10ML SYR IV PRN (10:50)
--- NOTE | 2019-07-10 10:50 | Anesthesiology Consultation ---
Date of Service July 10, 2019 Assessment & Plan Chart Review Chart Review: Acceptable Risk for Surgery and Patient NOT seen in Pre Admission Testing Consults Requested none ASA ASA4 Proposed Anesthesia Anesthesia Type: MAC Risk / Benefits Reviewed With: PT / POA / Parent / Guardian, Accepts Plan and Informed Consent Obtained History Surgery Operation Date: 07/09/19 07:00 Proposed Procedures p Right Total Knee Arthroplasty - Ronal Reagan MD Operation Date: 07/10/19 16:30 Proposed Procedures p Esophagogastroduodenoscopy Dr John Lopez Height/Weight Height: 6 ft Weight: 117.8 kg Allergies Allergy/AdvReac Type Severity Reaction Status Date / Time Geafojq-Nxr-Vrp Reductase Allergy Unknown ONE Verified 07/09/19 05:51 Inhibitor STATIN-RASH Medications Home Medications Medication Instructions Recorded Confirmed Last Taken Cbd Oil 25 mg PO HS 06/06/19 07/09/19 07/07/19 21:00 Hemp Oil 150 mg PO QAM 06/06/19 07/09/19 07/07/19 09:00 Lupron Depot (4 month) 1 dose IM Q16W 06/06/19 07/09/19 Unknown atorvastatin 40 mg PO HS 06/06/19 07/09/19 07/07/19 21:00 bicalutamide 50 mg PO QPM 06/06/19 07/09/19 07/07/19 21:00 cyanocobalamin (vitamin B-12) 1,000 mcg PO HS 06/06/19 07/09/19 07/07/19 21:00 docusate sodium 100 mg PO HS 06/06/19 07/09/19 07/07/19 21:00 meclizine 12.5 mg PO TID PRN 06/06/19 07/09/19 07/07/19 21:00 naproxen sodium [Aleve] 440 mg PO Q8H PRN 06/06/19 07/09/19 Unknown Active Medications Generic Name Dose Route Start Last Admin Trade Name Freq PRN Reason Stop Dose Admin Acetaminophen 1,000 mg 07/09/19 14:00 07/10/19 05:43 Tylenol PO 08/08/19 13:59 1,000 mg Q8 ALVINA Administration Atorvastatin Calcium 40 mg 07/09/19 21:00 07/09/19 21:00 Lipitor PO 08/08/19 20:59 40 mg HS ALVINA Administration Bicalutamide 50 mg 07/09/19 21:00 07/09/19 20:58 Casodex PO 08/08/19 20:59 50 mg QPM ALVINA Administration Celecoxib 200 mg 07/09/19 21:00 07/10/19 09:29 Celebrex PO 08/08/19 20:59 Not Given BID ALVINA Cyanocobalamin 1,000 mcg 07/09/19 21:00 07/09/19 20:59 Vitamin B-12 PO 08/08/19 20:59 1,000 mcg HS ALVINA Administration Docusate Sodium 100 mg 07/09/19 21:00 07/10/19 09:02 Colace PO 08/08/19 20:59 100 mg BID ALVINA Administration Famotidine 20 mg 07/10/19 09:00 07/10/19 09:02 Pepcid PO 08/09/19 08:59 20 mg QAM ALVINA Administration Sodium Chloride 1,000 mls @ 100 mls/hr 07/10/19 06:30 07/10/19 06:24 Nss 1000ml IV 08/09/19 06:29 100 mls/hr .Q10H ALVINA Administration Insulin Glargine 5 units 07/10/19 09:00 07/10/19 09:20 Lantus Solostar Pen SC 08/09/19 08:59 5 units BID ALVINA Administration Multivitamins 1 tab 07/10/19 09:00 07/10/19 09:02 Multivitamin Tab PO 08/09/19 08:59 1 tab QAM ALVINA Administration Ondansetron HCl 4 mg 07/09/19 10:18 07/09/19 19:18 Zofran IV 08/08/19 10:17 4 mg Q6H PRN Administration Nausea And Vomiting Oxycodone HCl 5 - 10 mg 07/09/19 10:18 07/09/19 15:36 Roxicodone Immediate Rel PO 07/23/19 10:17 10 mg Q4H PRN Administration Pain or Pre PT Sennosides 17.2 mg 07/09/19 21:00 07/09/19 20:58 Senokot PO 08/08/19 20:59 17.2 mg HS ALVINA Administration NPO Date Last Intake of Fluids: 07/10/19 Time Last Intake of Fluids: 00:00 Last Intake of Fluids Comment: sip of water with morning pills Date Last Intake of Solids: 07/09/19 Time Last Intake of Solids: 18:00 Past Medical History Medical History Arthritis Cancer prostate s/p prostatectomy, XRT (?metastatic disease) History of claustrophobia Hyperlipidemia Obesity Pulmonary embolism S/P left TKA (2012) Sleep apnea CPAP Vertigo Exercise / Class Metabolic Activity III < 4 Walking/Shop/Light housework Past Family History Family History Other Cancer Coronary heart disease Past Surgical History Surgical History H/O prostatectomy 2001 History of cholecystectomy History of colonoscopy History of esophagogastroduodenoscopy (EGD) History of surgery on arm RIGHT-S/P INJURY TO REPAIR-DEFORMITY FINGERS BUT ROM OF ARM History of total knee replacement LEFT Past Anesthesia History No Hx of Anesthesia Complications and No Family Hx of Anesthesia Complications History of PONV No Hx of PONV and No Hx of Motion Sickness Social History Smoking Status: Former smoker Do You Dip or Chew Tobacco: No (QUIT 5 YRS AGO) Smoking End Date: QUIT 2016 Hx Alcohol Use: Yes Alcohol type: hard liquor alcohol intake frequency: holidays/special occasions only Hx Substance Use: No Physical Exam Vital Signs Last Vital Signs Temp 36.8 C 07/10/19 10:45 Pulse 73 07/10/19 10:45 Resp 16 07/10/19 10:45 BP 119/79 07/10/19 10:45 Pulse Ox 99 07/10/19 10:45 Constitutional + obese ENMT Mouth: + edentulous; no dentition abnormality Thyromental Distance: > or= 3.5 Finger Breadths Mallampati Class: II Neck normal visual inspection, trachea midline, + short neck and + thick neck; neck extension not limited Respiratory normal respiratory effort Auscultation: lungs clear to auscultation bilaterally Cardiovascular Rate/Rhythm: regular rate and regular rhythm Heart Sounds: no murmur Vessels: no carotid bruit Musculoskeletal Spine: normal cervical ROM Neurologic moves all extremities Motor/Sensory: no sensory deficit Psychiatric Orientation: alert and oriented x 3 Testing Laboratory Results 07/10/19 04:52 02/18/20 04:52 PT 10.6 Seconds (9.0-12.0) 06/12/19 12:15 INR 1.0 (0.9-1.1) 06/12/19 12:15 APTT 22.3 Seconds (21.0-31.0) 06/12/19 12:15 Hemoglobin A1c 7.3 % (4.5-5.6) H 06/12/19 12:15 Urine Color Dark Yellow 06/12/19 Unknown Urine Appearance Clear (Clear) 06/12/19 Unknown Urine pH 5.0 (4.5-7.5) 06/12/19 Unknown Ur Specific [place] 1.031 (1.000-1.030) H 06/12/19 Unknown Urine Protein Negative (Negative) 06/12/19 Unknown Urine Glucose (UA) 2+ (Negative) H 06/12/19 Unknown Urine Ketones Trace (Negative) H 06/12/19 Unknown Urine Nitrite Negative (Negative) 06/12/19 Unknown Ur Leukocyte Esterase Negative (Negative) 06/12/19 Unknown Blood Type A Positive 06/12/19 12:15 Antibody Screen NEGATIVE 06/12/19 12:15 07/10/19 09:11 POC Glucose 257 H
[2019-07-10] MEDS ORDERED: INSULIN ASPART 100 UNITS/ML 3 ML PEN SC SCH ×2 (11:30→12:00)
--- NOTE | 2019-07-10 11:37 | GI REPORT ---
Patient Name: Hemanth Durham Procedure Date: 07/10/2019 11:20 AM Date of : 1950 Admit Type: Inpatient Age: 69 Gender: Male Attending MD: Arlette Lopez DO Procedure: Upper GI endoscopy Providers: Arlette Lopez DO Referring MD: Ronal Reagan Indications: Dysphagia Medicines: Monitored Anesthesia Care Complications: No immediate complications. Estimated blood loss: Minimal. Estimated Blood Loss: Estimated blood loss was minimal. Procedure: Pre-Anesthesia Assessment: - Prior to the procedure, a History and Physical was performed, and patient medications, allergies and sensitivities were reviewed. The patient's tolerance of previous anesthesia was reviewed. - The risks and benefits of the procedure and the sedation options and risks were discussed with the patient. All questions were answered and informed consent was obtained. - Patient identification and proposed procedure were verified prior to the procedure by the physician, the nurse and the operational communication chief. The procedure was verified in the pre-procedure area in the procedure room. - Pre-procedure physical examination revealed no contraindications to sedation. - ASA Grade Assessment: IV - A patient with severe systemic disease that is a constant threat to life. - ASA Grade Assessment: IV - A patient with severe systemic disease that is a constant threat to life. - After reviewing the risks and benefits, the patient was deemed in satisfactory condition to undergo the procedure. - The anesthesia plan was to use monitored anesthesia care (MAC). - Immediately prior to administration of medications, the patient was re-assessed for adequacy to receive sedatives. - The heart rate, respiratory rate, oxygen saturations, blood pressure, adequacy of pulmonary ventilation, and response to care were monitored throughout the procedure. - The physical status of the patient was re-assessed after the procedure. After obtaining informed consent, the endoscope was passed under direct vision. Throughout the procedure, the patient's blood pressure, pulse, and oxygen saturations were monitored continuously. The Endoscope was introduced through the mouth, and advanced to the third part of duodenum. The upper GI endoscopy was accomplished without difficulty. The patient tolerated the procedure well. Findings: No endoscopic abnormality was evident in the esophagus to explain the patient's complaint of dysphagia. It was decided, however, to proceed with dilation of the entire esophagus. A guidewire was placed and the scope was withdrawn. Dilation was performed with a Savary dilator with no resistance at 54 Fr. The dilation site was examined following endoscope reinsertion and showed mild mucosal disruption just above the gastroesophageal junction. Estimated blood loss was minimal. The Z-line was regular and was found 38 cm from the incisors. Diffuse moderate inflammation characterized by congestion (edema), erythema and granularity was found in the entire examined stomach. Biopsies were taken with a cold forceps for histology. The pathology specimen was placed into Bottle A. Estimated blood loss was minimal. The examined duodenum was normal. Impression: - No endoscopic esophageal abnormality to explain patient's dysphagia. Esophagus dilated to 54 Fr - Z-line regular, 38 cm from the incisors. - Gastritis. Biopsied. - Normal examined duodenum. Recommendation: - Return patient to hospital abdi for ongoing care. - Advance diet as tolerated. Would recommend avoidance of chicken, beef and breads during inpatient admission. Would also recommend that the patient eat while being seated as opposed to lying flat in bed. - Use Prilosec (omeprazole) 20 mg PO daily. - Repeat upper endoscopy PRN for retreatment. - Return to GI office PRN. Arlette Lopez D.O. Arlette Lopez, 07/10/2019 11:37:36 AM This report has been signed electronically. Note Initiated On: 07/10/2019 11:20 AM Number of Addenda: 0 I attest to the content of the Intraoperative Record and orders documented therein, exceptions below {[id number]}
--- NOTE | 2019-07-10 11:39 | Communication Note ---
Date of Service: July 10, 2019 The patient underwent upper endoscopy today. There was no obvious obstruction within the esophagus, empiric dilation was performed to 54 [place]. Recommendations Omeprazole 20 mg/day Would avoid chicken beef and reds during inpatient admission Would recommend good swallowing hygiene with patient being upright as opposed to lying flat in bed during meals Please call with any questions or concerns, GI to sign off
--- NOTE | 2019-07-10 11:54 | Anesthesiology Progress Note ---
Date of Service July 10, 2019 Anesthesia Post Procedure Vital Signs Vital Signs: Temp Pulse Pulse Pulse Resp BP Pulse Ox 07/10/19 11:39 36.0 C L 56 L 10 L 109/73 96 07/10/19 10:45 36.8 C 73 16 119/79 99 07/10/19 07:12 36.5 C 65 16 126/79 97 07/10/19 02:55 36.8 C 73 16 109/73 98 07/09/19 23:04 36.8 C 71 17 110/72 95 07/09/19 19:58 36.8 C 68 16 99/64 L 94 07/09/19 14:58 36.4 C L 67 17 121/74 96 07/09/19 13:13 36.5 C 85 19 130/80 98 07/09/19 12:05 36.4 C L 63 15 109/72 96 Pain Intensity Right Knee: Pain Intensity: 1 Transfer of Care Handoff Completed per policy Notes Mental Status: alert / awake / arousable Patient Amnestic to Procedure: Yes Nausea / Vomiting: adequately controlled Pain: adequately controlled Airway Patency, RR, SpO2: stable & adequate BP & HR: stable & adequate Hydration State: stable & adequate Anesthetic Complications: no major complications apparent
[2019-07-10] MEDS ORDERED: INSULIN GLARGINE SOLOSTAR 100 UNITS/ML 3 ML PEN SC ONE (15:30)
[2019-07-10] MEDS: OXYCODONE HCL IR 5 MG TAB (IMMEDIATE RELEASE) PO PRN (15:46)
[2019-07-10] MEDS: INSULIN ASPART 100 UNITS/ML 3 ML PEN SC SCH ×2 (17:33→21:41)
--- NOTE | 2019-07-10 18:40 | Hospitalist Progress Note ---
Date of Service July 10, 2019 Assessment & Plan (1) Dysphagia: Secondary to not chewing with missing bottom dentures. Recommend these are brought in from home. Until then he should be on minced and moist diet. Aspiration precautions when eating. (2) Gastritis: Based on EGD. No epigastric pain on exam. Omeprazole 20mg PO daily recommended by GI (will give pantoprazole as this is on formulary while here. (3) Status post total right knee replacement: 69yo C male status post right total knee arthroplasty performed today by Dr. Reagan. Surgery well tolerated, no complications identified. Patient with history of post-operative PE after a knee replacement in 2012. He completed anticoagulation at that time. - Continue pain, nausea and bowel management per primary team - Activity per primary team. Encourage ambulation as tolerated - Patient to be evaluated by Case Management for possible rehab placement - Restarted Xarelto for the morning now he has had EGD (4) Hyperlipidemia: Chronic wiithout mylagias. -Continue Atorvastatin at home dose (5) Type 2 diabetes mellitus: HbA1C on pre-op labs 7.3. Apparently was told to try to change his diet to manage. He eats a lot of sweets and drinks soda and fruit juice. Ate a whole cake in 2 days for his birthday therefore agree lots of dietary changes but woul d recommend starting a small dose of 500mg metformin PO daily on discharge with close PCP follow up. Current hyperglycemia secondary to stress of surgery and dexamethsone given. Will continue to manage with basal bolus insulin while admitted. (6) Urine retention: Suspect related to surgical anesthesia, oxycodone and lack of movement in setting of metastatic prostate cancer. Increase IV fluids to 150ml/hr as suspect somewhat dehydrated on exam and lack of urine on bladder scan @ 8 hours post PVR. Straight cath overnight PRN. If still having urine retention tomorrow he will likely need ramirez, tamsulosin if BP able to tolerate this and follow up with his urologist. Given Hx incomplete bladder emptying I am unclear what investigation have been done for this and when. (7) Prostate cancer metastatic to bone: Patient with metastatic prostate cancer presently on monthly Lupron and Casodex -Continue Casodex 50mg po daily -Lupron to be administered outpatient as scheduled (8) Sleep apnea: Chronic -CPAP qHS Thank you for this consult. Given ongoing multiple medical issues will continue to see while he is admitted. (9) DVT prophylaxis: Restart Xarelto 10mg. Duration as determined by orthopedics. Admission and Anticipated Discharge Date Admission Date: July 09, 2019 Anticipated date of discharge: 07/11/19 Subjective Patient seen after EGD. No esophageal abnormalities seen. The patient reports not having his lower dentures therefore doesn't really chew his food. Recently had new dentures and the bottom one rocks so he doesn't wear it. Was in mild urinary retention today therefore straight cath performed. He reports a 6 months history of progressively worsening incomplete bladder emptying but he is unsure whether his urologist is aware of this. He has metastatic prostate cancer with spread to his spine although he does not know much about his diagnosis or event which physician is managing his Lupron injections. He describes initially having a prostatectomy but PSA kept rising and eventually diagnosed with bone mets to spine. He does have chronic back pain possibly associated with this but no lower extremity signs or symptoms to be concerned about cauda equina. Review of Systems Review of Systems: All systems reviewed & are unremarkable except as noted in HPI & below Physical Exam Constitutional: well developed and + obese; no acute distress Eyes: + anicteric sclerae; normal pupil size ENMT: external ear and nose normal, oropharynx normal Neck: + short neck and + thick neck Respiratory: normal respiratory effort, lungs clear to auscultation Cardiovascular: RRR, no murmur, no edema Gastrointestinal (Abdomen): Inspection/Auscultation: + abdomen distended and normal bowel sounds Percussion/Palpation: abdomen soft; abdomen nontender, no guarding and abdomen not rigid Musculoskeletal: no cyanosis or clubbing, extremities motor strength 5/5 Skin: no rashes, warm and dry Neurologic: awake; no focal motor deficits (NV intact distal to operation site) Psychiatric: A+Ox3, euthymic affect Results & Data ([facility]) Vital Signs (Past 12 Hours) Vital Signs Temp Pulse Resp BP Pulse Ox 07/10/19 14:58 36.8 C 66 16 117/73 96 07/10/19 12:28 36.3 C L 66 18 125/78 97 07/10/19 12:09 65 18 116/74 94 07/10/19 11:54 64 16 103/75 94 07/10/19 11:39 36.0 C L 56 L 10 L 109/73 96 07/10/19 10:45 36.8 C 73 16 119/79 99 07/10/19 07:12 36.5 C 65 16 126/79 97 PG Care Time/CCT Total # of Minutes Spent Total Time Spent with Patient: Total time spent is greater than 50% in coordination of care (as documented) at patient's floor/unit and/or counseling patient: Coding Level of Care Code 88473 Subseq Hosp Care Lvl 3 Diagnoses Dysphagia R13.10 Dysphagia type: esophageal phase Gastritis K29.00 Gastritis type: superficial Chronicity: acute Gastritis bleeding: without bleeding Status post total right knee replacement Z96.651 Hyperlipidemia E78.5 Hyperlipidemia type: unspecified Type 2 diabetes mellitus E11.65 Diabetes mellitus mcfp insulin use: without mcfp use Diabetes mellitus complication status: with hyperglycemia Urine retention R33.9 Prostate cancer metastatic to bone C61; C79.51 Sleep apnea G47.30 Sleep apnea type: unspecified type DVT prophylaxis Z29.9 (1) Sleep apnea Sleep apnea type: unspecified type Qualified Code(s): G47.30 - Sleep apnea, unspecified (2) Hyperlipidemia Hyperlipidemia type: unspecified Qualified Code(s): E78.5 - Hyperlipidemia, unspecified (3) Type 2 diabetes mellitus Diabetes mellitus mcfp insulin use: without calculation reviewer use Diabetes mellitus complication status: with hyperglycemia Qualified Code(s): E11.65 - Type 2 diabetes mellitus with hyperglycemia (4) Dysphagia Dysphagia type: esophageal phase Qualified Code(s): R13.10 - Dysphagia, unspecified (5) Gastritis Gastritis type: superficial Chronicity: acute Gastritis bleeding: without bleeding Qualified Code(s): K29.00 - Acute gastritis without bleeding
[2019-07-10] MEDS: CYANOCOBALAMIN 500 MCG TABLET (VITAMIN B-12) PO SCH (21:38)
[2019-07-10] MEDS: SENNA 8.6 MG TAB PO SCH (21:38)
[2019-07-10] MEDS: ATORVASTATIN 40 MG TAB PO SCH (21:39)
[2019-07-10] MEDS: BICALUTAMIDE 50 MG TAB PO SCH (21:43)
[2019-07-11] MEDS: SODIUM CHLORIDE 0.9% 1000ML 1,000 ML IV SCH ×2 (02:08→09:48)
[2019-07-11] MEDS: ACETAMINOPHEN 500 MG TAB PO SCH (06:04)
--- NOTE | 2019-07-11 07:46 | Orthopedic Progress Note ---
Date of Service July 11, 2019 Assessment & Plan (1) Status post total right knee replacement: POD #2 PT/ OT DVT proph D/C planning- SNF when accepted per SS As per medicine Ramirez in place for urinary retention, hx prostate CA, will need to follow w urologist EGD negative, placed on protonix Minced and moist diet, patient suggested to get lower dentures from home but states they dont fit. Hyperglycemia- placed on metformin. Will not D/C today due to multiple issues. (2) Dysphagia: Patient is NPO per GI for EGD today due to hx of dysphagia. Admission and Anticipated Discharge Date Admission Date: July 09, 2019 Anticipated date of discharge: 07/11/19 Subjective POD #2 EGD- No esophageal abnormalities seen. Placed on Protonix The patient reports not having his lower dentures therefore doesn't really chew his food. Recently had new dentures and the bottom one rocks so he doesn't wear it, states they dont fit. On Minced and moist diet. Urinary retention- ramirez placed due to multiple straight caths Denies SOB, CP, N/V. Knee pain controlled well. Xarelto restarted post EGD. Physical Exam Physical Exam: Right knee silverlon dressing c/d/i Toes/ ankle mobile No calf tenderness. A&Ox3 Patient sitting bedside comfortable eating breakfast. Results & Data ([facility]) Vital Signs (Past 12 Hours) Vital Signs Temp Pulse Resp BP Pulse Ox 07/11/19 06:14 36.5 C 60 16 114/72 98 07/11/19 03:05 36.7 C 55 L 16 109/68 96 07/10/19 23:03 36.9 C 60 16 96/58 L 93 (1) Dysphagia Dysphagia type: esophageal phase Qualified Code(s): R13.10 - Dysphagia, unspe cified
[2019-07-11 08:06] LABS: Hematocrit (blood only) 26.2 % (42-52); Hemoglobin 9.3 g/dL (14.0-18.0); Mean Corpuscular Hemoglobin 33.7 pg (25-34); Mean Corpuscular Hgb Conc 35.5 g/dL (32-36); Mean Corpuscular Volume 94.9 fL (80-100); Mean Platelet Volume 8.4 fL (7.4-10.4); Platelet Count 126 K/uL (130-400); RDW Coefficient of Variation 15.5 % (11.5-14.5); RDW Standard Deviation 52.2 fL (36.4-46.3); Red Blood Count 2.76 M/uL (4.7-6.1); White Blood Count 11.77 K/uL (4.8-10.8)
[2019-07-11] MEDS: CeleBREX 200 MG CAP PO SCH (08:06)
[2019-07-11] MEDS: MULTIVITAMIN TAB PO SCH (08:06)
[2019-07-11] MEDS: DOCUSATE SODIUM 100 MG CAP PO SCH (08:06)
[2019-07-11] MEDS: OXYCODONE HCL IR 5 MG TAB (IMMEDIATE RELEASE) PO PRN ×3 (08:10→12:10)
[2019-07-11] MEDS: INSULIN ASPART 100 UNITS/ML 3 ML PEN SC SCH ×2 (08:11→12:04)
[2019-07-11] MEDS: INSULIN GLARGINE SOLOSTAR 100 UNITS/ML 3 ML PEN SC SCH (08:11)
[2019-07-11 08:53] LABS: Albumin Level 3.2 gm/dl (3.4-5.0); BUN Creatinine Ratio 17.1 (10-20); Bilirubin Direct 0.2 mg/dl (0-0.2); Calcium 8.3 mg/dl (8.5-10.1); Creatinine Clr Calc Pharmacy 85.5 ml/min; Est GFR (African American) 82.4; Est GFR (Non-African American) 71.1; Potassium 3.5 mmol/L (3.5-5.1)
[2019-07-11 08:56] LABS: Bilirubin,Total 1.1 mg/dl (0.2-1); Total Protein 5.9 gm/dl (6.4-8.2)
[2019-07-11] MEDS ORDERED: RIVAROXABAN 10 MG TABLET PO SCH (09:00)
[2019-07-11] MEDS ORDERED: PANTOprazole 40 MG TAB PO SCH (09:00)
--- NOTE | 2019-07-11 11:35 | Hospitalist Progress Note ---
Date of Service July 11, 2019 Assessment & Plan (1) Status post total right knee replacement: POD #2 post right total knee arthroplasty performed today by Dr. Reagan. Surgery well tolerated, no complications identified. Patient with history of post-operative PE after a knee replacement in 2012. He completed anticoagulation at that time. Continue pain, nausea and bowel management per primary team Activity per primary team. Encourage ambulation as tolerated Patient to be evaluated by Case Management for possible rehab placement Restarted Xarelto for the morning now he has had EGD (2) Dysphagia: Secondary to not chewing with missing bottom dentures. Recommend these are brought in from home. Until then he should be on minced and moist diet. Aspiration precautions when eating. (3) Gastritis: Based on EGD. No epigastric pain on exam. Omeprazole 20mg PO daily recommended by GI - added to discharge prescriptions (4) Dehydration: Urine still dark despite increased IV fluids. BMP much improved however. Will continue IV fluids until discharged but now he is drinking better I suspect he can keep up with his usual output. (5) Urine retention: Multifactorial (probable chronic incomplete bladder emptying, surgical anesthesia, no BM yet, dehydration, lack of movement). Continued despite trial x3 straight caths therefore ramirez cath placed today. Will not start on tamsulosin due to low normal blood pressures and risk of orthostasis as discussed wih Dr Lange (his urologist), follow up in 7-10 days for trial without catheter. (6) Prostate cancer metastatic to bone: Patient with metastatic prostate cancer presently on monthly Lupron and Casodex -Continue Casodex 50mg po daily -Lupron to be administered outpatient as scheduled (7) Type 2 diabetes mellitus: HbA1C on pre-op labs 7.3. wishes him to follow up with PCP rather than start medications on discharge. Glucose now more acceptable now Decadron out of his system. Inpatient hyperglycemia secondary to stress of surgery and dexamethasone given. Will continue to manage with basal bolus insulin while admitted. (8) Hyperlipidemia: Chronic wiithout mylagias. -Continue Atorvastatin at home dose (9) Sleep apnea: Chronic -CPAP qHS (10) DVT prophylaxis: Restart Xarelto 10mg. Duration as determined by orthopedics. Orthopedics to prescribe on discharge. Admission and Anticipated Discharge Date Admission Date: July 09, 2019 Patient is medically stable for discharge Anticipated date of discharge: 07/11/19 Subjective Patient feeling well. No current concerns or questions at this time. Ramirez catheter had to be placed this morning for urinary retention - I discussed this with his outpatient urologist and avoiding tamsulosin due to low normal blood pressures when supine therefore he is a high risk for orthostasis with tamsulosin. He wishes to follow up with his PCP regarding the diabetes rather than starting metformin at this time. Review of Systems Review of Systems: All systems reviewed & are unremarkable except as noted in HPI & below Physical Exam Constitutional: well developed and + obese; no acute distress Eyes: + anicteric sclerae; normal pupil size ENMT: external ear and nose normal, oropharynx normal Neck: + short neck and + thick neck Respiratory: normal respiratory effort, lungs clear to auscultation Cardiovascular: RRR, no murmur, no edema Gastrointestinal (Abdomen): Inspection/Auscultation: + abdomen distended and normal bowel sounds Percussion/Palpation: abdomen soft; abdomen nontender, no guarding and abdomen not rigid Musculoskeletal: no cyanosis or clubbing, extremities motor strength 5/5 Skin: no rashes, warm and dry Neurologic: awake; no focal motor deficits (NV intact distal to operation site) Psychiatric: A+Ox3, euthymic affect Results & Data ([facility]) Vital Signs (Past 12 Hours) Vital Signs Temp Pulse Resp BP Pulse Ox 07/11/19 06:14 36.5 C 60 16 114/72 98 07/11/19 03:05 36.7 C 55 L 16 109/68 96 PG Care Time/CCT Total # of Minutes Spent Total Time Spent with Patient: Total time spent is greater than 50% in coordination of care (as documented) at patient's floor/unit and/or counseling patient: Coding Level of Care Code 17628 Subseq Hosp Care Lvl 2 Diagnoses Status post total right knee replacement Z96.651 Dysphagia R13.10 Dysphagia type: esophageal phase Gastritis K29.00 Chronicity: acute Gastritis bleeding: without bleeding Gastritis type: superficial Dehydration E86.0 Urine retention R33.9 Prostate cancer metastatic to bone C61; C79.51 Type 2 diabetes mellitus E11.65 Diabetes mellitus complication status: with hyperglycemia Diabetes mellitus residential insulin use: without residential use Hyperlipidemia E78.5 Hyperlipidemia type: unspecified Sleep apnea G47.30 Sleep apnea type: unspecified type DVT prophylaxis Z29.9 (1) Sleep apnea Sleep apnea type: unspecified type Qualified Code(s): G47.30 - Sleep apnea, unspecified (2) Type 2 diabetes mellitus Diabetes mellitus complication status: with hyperglycemia Diabetes mellitus residential insulin use: without residential use Qualified Code(s): E11.65 - Type 2 diabetes mellitus with hyperglycemia (3) Dysphagia Dysphagia type: esophageal phase Qualified Code(s): R13.10 - Dysphagia, unspecified (4) Gastritis Chronicity: acute Gastritis bleeding: without bleeding Gastritis type: superficial Qualified Code(s): K29.00 - Acute gastritis without bleeding (5) Hyperlipidemia Hyperlipidemia type: unspecified Qualified Code(s): E78.5 - Hyperlipidemia, unspecified
--- NOTE | 2019-07-25 19:14 | Discharge Summary ---
HISTORY OF PRESENT ILLNESS: This is a 69-year-old male patient of Dr. Reagan's complaining of chronic right knee pain, longstanding, now progressively getting worse. The patient has failed conservative treatment. He has elected to proceed with a right total knee arthroplasty. PAST MEDICAL HISTORY: Hypercholesterolemia, pulmonary embolism, sleep apnea with the use of CPAP, peripheral neuropathy, vertigo, osteoarthritis, spine problems, sciatica, acid reflux, obesity, prostate cancer and cirrhosis. POSTOPERATIVE COURSE: The patient underwent a right total knee arthroplasty on 07/09/2019. He was followed closely with medical consultation, DVT prophylaxis in the form of Xarelto, physical therapy and pain control. The patient did suffer from dysphagia postoperatively. Patient was n.p.o. for GI EGD due to dysphagia. It was found that the patient returned to the hospital abdi, advance diet as tolerated. There was no specific problems. Recommended avoidance of chicken, beef and breads. Also recommended the patient eat while being seated upright. Will add Prilosec and follow up with GI as an outpatient. PHYSICAL EXAMINATION: Right knee Silverlon dressing was clean, dry and intact. Toes and ankle were mobile. No calf tenderness. He is alert and oriented x3. The patient with possible and eating breakfast with no problems. Results of the EGD no esophageal abnormalities. He was placed on Protonix. He was discharged on a minced and moist diet. He will follow up with his primary care physician as an outpatient. As for urinary retention he was placed on a [place] for discharge and will follow up with his primary care physician. Continue Xarelto for DVT prophylaxis. The patient was [facility] day [facility]2. PLAN: The patient was advised of his diagnosis. He was discharged to the [facility] on postoperative day #3 with the above recommendations. He will follow up with Dr. Reagan as scheduled as an outpatient. [facility]
== END 2019-07-11 12:45 | DRG 470 ==
LOC: ASU 05:28 → 3E 09:22